=== PATIENT | female | born 1970 | race Caucasian/White ===

== ENCOUNTER 2017-01-16 08:52 | Outpatient (CLI) | payer BC ==
--- NOTE | 2017-01-19 15:32 | RAD ---
PA CHEST AND RIGHT RIB SERIES: HISTORY: Fall, chest pain. FINDINGS: The heart size is normal. The lungs are expanded without focal areas of consolidation, pneumothorax , or pleural effusions. No right-sided rib fracture identified. IMPRESSION: No acute process. POS: OFF
== END 2017-01-16 08:53 | disposition home or self-care (01) ==
LOC: RAD-FRANK 08:52
PROVIDERS: ATTEND Nurse Practitioner Family
DX: R07.89 Other chest pain (principal)